=== PATIENT | male | born 1985 | race Two or more races ===

== ENCOUNTER 2023-06-20 16:06 | Emergency (ER) | payer OTHER ==
[2023-06-20 16:23] VITALS: BP 124/85; PULSE 85; RESP 16; TEMP 98.7; BMI 45.1
== END 2023-06-20 17:00 | disposition home or self-care (01) ==
LOC: FER 16:06
DX: S20.20XA Contusion of thorax, unspecified, initial encounter (principal); R07.89 Other chest pain; R10.13 Epigastric pain; W01.0XXA Fall on same level from slipping, tripping and stumbling without subsequent striking against object, initial encounter
CPT/HCPCS: 71046-TC-FY; 99283-25

== ENCOUNTER 2023-11-19 16:43 | Emergency (ER) | payer OTHER ==
[2023-11-19 18:14] VITALS: BP 132/88; PULSE 79; RESP 20; TEMP 99.2; BMI 43.5
[2023-11-19] MEDS ORDERED: ACETAMINOPHEN 500 MG TABLET (FP) ONE (18:28)
[2023-11-19] MEDS: ACETAMINOPHEN 500 MG TABLET (FP) PO ONE (18:30)
[2023-11-19] MEDS ORDERED: KETOROLAC TROMETHAMINE 30 MG/1 ML VIAL ONE (18:53)
[2023-11-19] MEDS: SODIUM CHLORIDE 1,000 ML IV STA (18:56)
[2023-11-19] MEDS: KETOROLAC TROMETHAMINE 30 MG/1 ML VIAL IVPUSH ONE (18:57)
[2023-11-19 19:01] LABS: HEMATOCRIT 45.1 % (35.4-49); MCH 27.9 pg (25.7-33.7); MCHC 33.2 g/dl (32.0-35.9); MEAN PLT VOLUME 7.3 fl (7.5-11.1); PLATELET COUNT 188.4 10^3/uL (134-434); RBC 5.37 10^6/uL (4.00-5.60); RDW 13.9 % (11.9-15.9); WHITE BLOOD COUNT 9.7 10^3/uL (4.0-10.8)
[2023-11-19 19:10] LABS: PLATELET ESTIMATE ADEQUATE
[2023-11-19 19:24] LABS: ALBUMIN 4.6 g/dl (3.4-5.0); BILIRUBIN,TOTAL 0.3 mg/dl (0.2-1); CALCIUM 9.7 mg/dl (8.5-10.1); CREATININE 1.1 mg/dl (0.6-1.3); POTASSIUM 4.2 mmol/L (3.5-5.1); TOT PROT 6.8 g/dl (6.4-8.2)
== END 2023-11-19 22:05 | disposition home or self-care (01) ==
LOC: FER 16:43
PROC: 3E0333Z Introduction of Anti-inflammatory into Peripheral Vein, Percutaneous Approach (ICD-10-PCS; principal; 2023-11-19)
PROC: 3E0337Z Introduction of Electrolytic and Water Balance Substance into Peripheral Vein, Percutaneous Approach (ICD-10-PCS; 2023-11-19)
DX: M54.50 Low back pain, unspecified (principal); A08.4 Viral intestinal infection, unspecified; K59.00 Constipation, unspecified; N50.811 Right testicular pain; N50.812 Left testicular pain
CPT/HCPCS: 36415; 74177-TC; 76870-TC; 80053; 81003; 85027; 87086; 99285-25; Q9967